=== PATIENT | female | born 1965 | race Two or more races ===

== ENCOUNTER 2016-08-25 10:30 | Emergency (ER) | payer OTHER ==
[~2016-08-25] VITALS: Ht 175.3 cm; Wt 81.6 kg
[2016-08-25] MEDS ORDERED: LORAZEPAM 1 MG TABLET ONE ×2 (10:40→11:06)
[2016-08-25] MEDS ORDERED: LORAZEPAM 1 MG TABLET PO ONE ×2 (11:00)
[2016-08-25 13:24] VITALS: BP 112/80
== END 2016-08-25 13:26 | disposition home or self-care (01) ==
LOC: ER 10:32
DX: F41.0 Panic disorder [episodic paroxysmal anxiety] (principal); R00.0 Tachycardia, unspecified
CPT/HCPCS: 71010; 93005; 99284; A4606; Z7610

== ENCOUNTER 2018-12-30 20:28 | Emergency (ER) | payer OTHER ==
[~2018-12-30] VITALS: Ht 170.2 cm; Wt 68.0 kg
--- NOTE | 2018-12-30 20:32 | NUR ---
PT BIBFAMILY FOR THROAT CLOSING / H/A AFTER CONSUMING FISH; PT AAOX4, PT TO BED 5, IV SL ESTABLISHED, VSS, NAD NOTED, PENDING MD JACOBO
[2018-12-30] MEDS ORDERED: IV NS 0.9% 1,000 ML IV ONE (20:53)
[2018-12-30] MEDS ORDERED: methylPREDNISolone SOD SUCC 125 MG/2ML VIAL ONE (21:00)
[2018-12-30] MEDS ORDERED: diphenhydrAMINE HCL 50 MG/ML VIAL IV ONE (21:00)
[2018-12-30] MEDS ORDERED: diphenhydrAMINE HCL 50 MG/ML VIAL ONE (21:00)
[2018-12-30] MEDS ORDERED: methylPREDNISolone SOD SUCC 125 MG/2ML VIAL IV ONE (21:00)
[2018-12-30] MEDS ORDERED: ONDANSETRON HCL/PF 4 MG/2 ML VIAL ONE (21:00)
[2018-12-30] MEDS ORDERED: ONDANSETRON HCL/PF 4 MG/2 ML VIAL IVP ONE (21:00)
[2018-12-30] MEDS ORDERED: FAMOTIDINE/PF INJ 20 MG/2 ML VIAL IV ONE ×2 (21:00)
[2018-12-30] MEDS ORDERED: ACETAMINOPHEN ES 500 MG TABLET ONE (21:09)
[2018-12-30] MEDS ORDERED: ACETAMINOPHEN ES 500 MG TABLET PO ONE (21:30)
[2018-12-30 21:43] VITALS: BP 119/76
--- NOTE | 2018-12-30 22:18 | NUR ---
Patient discharged to home in stable condition. Written and verbal after care instructions given. Patient verbalizes understanding of instruction. IV removed. Catheter intact and site benign. Pressure and 4x4 applied to site. No bleeding noted.
== END 2018-12-30 22:33 | disposition home or self-care (01) ==
LOC: ER 20:29
DX: T78.1XXA Other adverse food reactions, not elsewhere classified, initial encounter (principal); Z60.2 Problems related to living alone; X58.XXXA Exposure to other specified factors, initial encounter
CPT/HCPCS: 93005; 96374; 96375; 99283; J1200; J2405; J2930; J3490; J7030

== ENCOUNTER 2024-02-27 17:46 | Emergency (ER) | payer OTHER ==
[~2024-02-27] VITALS: Ht 167.6 cm; Wt 74.8 kg
[2024-02-27 18:02] VITALS: BP 130/75; TEMP 98.6
[2024-02-27] MEDS ORDERED: KETOROLAC TROMETHAMINE 15 MG/ML VIAL ONE (18:30)
[2024-02-27] MEDS: KETOROLAC TROMETHAMINE 15 MG/ML VIAL IM ONE (18:37)
[2024-02-27] MEDS ORDERED: NAPR-1164 PO (19:01)
[2024-02-27 20:01] VITALS: O2SAT 99
== END 2024-02-27 20:02 | disposition home or self-care (01) ==
LOC: ER 17:58
DX: S13.4XXA Sprain of ligaments of cervical spine, initial encounter (principal); S80.11XA Contusion of right lower leg, initial encounter; Z79.899 Other long term (current) drug therapy; V89.0XXA Person injured in unspecified motor-vehicle accident, nontraffic, initial encounter; Y93.89 Activity, other specified; Y92.89 Other specified places as the place of occurrence of the external cause; Y99.8 Other external cause status
CPT/HCPCS: 99285; 70450; 96372; 73590; J1885